=== PATIENT | male | born 1975 | race American Indian/Alaskan Native ===

== ENCOUNTER 2017-10-08 16:35 | Emergency (ER) | payer SELFPAY ==
--- NOTE | 2017-10-08 17:45 | XRay Report ---
FINAL REPORT PROCEDURE: XR FOREARM LT TECHNIQUE: LEFT forearm radiographs, AP and lateral views. CPT 13233 HISTORY: arm injury COMPARISON: No prior studies are available for comparison. FINDINGS: The radius and ulna appear intact. No fractures are seen. No radiopaque foreign bodies are identified. Bone density appears normal. IMPRESSION: Negative exam.
--- NOTE | 2017-10-08 17:50 | XRay Report ---
FINAL REPORT PROCEDURE: Three view left shoulder series TECHNIQUE: Left shoulder radiographs including AP views in internal and external rotation and abduction. CPT 59693 HISTORY: shoulder injury COMPARISON: No prior studies are available for comparison. FINDINGS: Moderate arthritic change visualized AC joint. Glenohumeral joint appears well preserved. No fracture or dislocation visualized. No abnormal soft tissue calcifications are seen. Bone density appears normal. IMPRESSION: Moderate arthritic change AC joint otherwise negative exam.
--- NOTE | 2017-10-08 18:11 | XRay Report ---
FINAL REPORT PROCEDURE: XR HUMERUS 2+V LT TECHNIQUE: Left humerus radiographs, AP and lateral views. HISTORY: arm injury COMPARISON: No prior studies are available for comparison. FINDINGS: No fracture is visualized. Bone density appears normal. No radiopaque foreign bodies are identified. IMPRESSION: Negative exam.
--- NOTE | 2017-10-08 22:47 | Emergency Department Report ---
Upper Extremity - [facility] Chief Complaint: Extremity Injury, Upper Stated Complaint: FALL/LEFT ARM PAIN Time Seen by Provider: 10/08/17 22:36 Upper Extremity: Left Shoulder, Left Arm, Left Forearm Occurred When: 2 Days Mechanism: Fall Severity: severe Symptoms: Yes Pain with Movement, No Deformity, No Limited Range of Movement, No Numbness, No Weakness, No Swelling, No Bruising/Ecchymosis, No Laceration or Abrasion Other History: 42-year-old -[place] male comes into the emergency room for the complaint of pain from his left arm sustained when a fall. Patient reports that he fell back and one of his coworkers tripped and fell on him. He reports at that time he heard something pop and started to have left shoulder pain. Patient reports no past medical history currently takes no medications and he has an allergy to doxycycline and amoxicillin. Patient reports that he did try Tylenol yesterday did not help with his pain. ED Review of Systems ROS: Stated complaint: FALL/LEFT ARM PAIN Other details as noted in HPI Constitutional: denies: chills, fever Eyes: denies: eye pain, eye discharge, vision change ENT: denies: ear pain, throat pain Respiratory: denies: cough, shortness of breath, wheezing Cardiovascular: denies: chest pain, palpitations Endocrine: no symptoms reported Gastrointestinal: denies: abdominal pain, nausea, diarrhea Genitourinary: denies: urgency, dysuria Musculoskeletal: arthralgia (left shoulder, left arm). denies: back pain, joint swelling Skin: denies: rash, lesions Neurological: denies: headache, weakness, paresthesias Psychiatric: denies: anxiety, depression Hematological/Lymphatic: denies: easy bleeding, easy bruising ED Past Medical Hx - Past Medical History Previous Medical History?: No - Surgical History Past Surgical History?: No - Social History Smoking Status: Former Smoker Substance Use Type: Alcohol - Medications Home Medications: Home Medications Medication Instructions Recorded Confirmed Last Taken Type Ibuprofen [Motrin 800 MG tab] 800 mg PO Q8HR PRN #30 tablet 10/08/17 Unknown Rx Upper Extremity Exam - Exam General: Vital signs noted. No distress. Alert and acting appropriately. Head and Torso: No HEENT Abnormality, No Neck Tenderness, No Chest/Lungs Abnormality, No Abdominal Tenderness, No Back Tenderness Shoulder Exam: Yes Shoulder Tenderness, Yes Normal Range of Motion in Shoulder, Yes AC Joint Tenderness, No Clavicle Tenderness, No Shoulder Deformity Arm Exam: Yes Arm/Humerus Tenderness, No Arm Deformity Elbow: Yes Normal Range of Motion in Elbow, No Elbow Tenderness, No Elbow Deformity Forearm: No Forearm Tenderness, No Forearm Deformity, No Pain with Pronation, No Pain with Supination Wrist: Yes Normal ROM in Wrist, No Wrist Tenderness, No Wrist Deformity, No Snuffbox Tenderness, No Pain with Axial Thumb Compression Hand: Yes Normal ROM in Digit(s), No Hand Tenderness, No Hand Deformity, No Digit Tenderness, No Digit(s) Deformity, No Tendon Dysfunction CMS Exam: Yes Normal Distal Pulses, Yes Normal Capillary Refill, Yes Normal Distal Sensation, No Broken Skin ED Course Vital Signs 10/08/17 16:39 Temperature 98.5 F Pulse Rate 86 Respiratory 16 Rate Blood Pressure 132/86 O2 Sat by Pulse 97 Oximetry Critical care attestation.: If time is entered above; I have spent that time in minutes in the direct care of this critically ill patient, excluding procedure time. ED Disposition Clinical Impression: Fall from ground level, Left upper arm pain Left shoulder pain Qualifiers: Chronicity: acute Qualified Code(s): M25.512 - Pain in left shoulder Disposition: DC-01 TO HOME OR SELFCARE Is pt being admited?: No Does the pt Need Aspirin: No Condition: Stable Instructions: Fall Prevention (ED), Rotator Cuff Injury (ED), Arthralgia (ED) Additional Instructions: Please take pain medication as prescribed. If symptoms persist or gets worse please follow up with an orthopedic provider. Prescriptions: Ibuprofen [Motrin 800 MG tab] 800 mg PO Q8HR PRN #30 tablet PRN Reason: Pain Referrals: PRIMARY MD CAN [Primary Care Provider] - 3-5 Days REBECCA POOLE MD [Staff Physician] - 3-5 Days RAFAEL PATRICIA MD [Staff Physician] - 3-5 Days [facility] [Provider Group] - 3-5 Days Forms: Work/School Release Form(ED)
[2017-10-08] MEDS ORDERED: NORCO 7.5/325 PO ONE (22:48)
[2017-10-08 23:02] VITALS: BP 144/76
== END 2017-10-08 23:00 | disposition home or self-care (01) ==
LOC: ED 16:35
DX: M25.512 Pain in left shoulder (principal); M79.622 Pain in left upper arm; Z87.891 Personal history of nicotine dependence; W18.39XA Other fall on same level, initial encounter; Y93.89 Activity, other specified; Y92.89 Other specified places as the place of occurrence of the external cause; Y99.8 Other external cause status
CPT/HCPCS: 99283